=== PATIENT | male | born 1945 | race African-American/Black ===

== ENCOUNTER 2018-05-21 15:30 | Inpatient (IN) | payer MEDICARE, MEDICAID ==
[~2018-05-21] VITALS: Ht 185.4 cm; Wt 72.6 kg
[~2018-05-21 15:30] MED LIST: ASPI-1159 PO; ATEN-175 PO; ATOR40TA70 PO; BETA45CR15 TP; CHOL100046 PO; CLOP75TA16 PO; CLOT15CR2 TP; DULO30CA2 PO; GABA-533 PO; HYDR-519 PO; NORT25CA PO; ZOLP10TA2 PO
[2018-05-21] MEDS ORDERED: SODIUM CHLORIDE 0.9% 1,000 ML IV ONE (16:03)
[2018-05-21] MEDS ORDERED: ONDANSETRON HCL 4MG/2ML INJ IV STA (16:03)
[2018-05-21] MEDS ORDERED: FENTANYL CITRATE/PF 50MCG/ML 2ML VIAL IV ONE (16:15)
[2018-05-21 16:51] LABS: BASOPHILS % 0.7 % (0.0-2.0); EOSINOPHILS % 4.1 % (0.0-5.0); HEMATOCRIT. 43.4 % (42.0-52.0); HEMOGLOBIN. 14.6 g/dL (14.0-18.0); LYMPHOCYTES % 34.4 % (20.0-50.0); MEAN CORPUSCULAR HEMOGLOBIN 28.2 pg (28.0-32.0); MEAN CORPUSCULAR VOLUME 83.9 fL (80.0-94.0); MEAN PLATELET VOLUME 8.4 fl (7.4-10.4); NEUTROPHILS % 51.8 % (40.0-76.0); PLATELET 278 x1000/uL (130-400); RED BLOOD CELL COUNT 5.17 mill/uL (4.7-6.1); RED CELL DISTRIBUTION WIDTH 15.9 % (11.6-14.6)
[2018-05-21 16:55] LABS: CHLORIDE 113 mEq/L (98-107)
[2018-05-21 16:56] LABS: INR 1.1; PROTHROMBIN TIME 11.1 sec (9.1-11.1)
[2018-05-21 17:16] LABS: CLARITY URINE CLEAR (CLEAR); COLOR URINE YELLOW (YELLOW); KETONES URINE NEGATIVE (NEGATIVE); LEUKOCYTE ESTERASE URINE NEGATIVE (NEGATIVE); NITRITE URINE NEGATIVE (NEGATIVE); OCCULT BLOOD URINE NEGATIVE (NEGATIVE); PROTEIN URINE NEGATIVE (NEGATIVE); SPECIFIC GRAVITY URINE 1.012 (1.005-1.030)
[2018-05-21] MEDS ORDERED: DEXT 5%/0.45% NACL 1000ML 1,000 ML IV SCH (20:20)
[2018-05-21] MEDS ORDERED: CLONIDINE 0.1MG TABLET PO PRN (20:30)
[2018-05-21] MEDS ORDERED: ONDANSETRON HCL 4MG/2ML INJ IV PRN (20:30)
[2018-05-21] MEDS ORDERED: HYDROMORPHONE HCL/PF 2MG/ML CPJ IV PRN (20:30)
[2018-05-21] MEDS ORDERED: ACETAMINOPHEN 325MG TABLET PO PRN (20:30)
[2018-05-21] MEDS ORDERED: IOHEXOL-300 100 ML BOTTLE ONE (20:46)
[2018-05-22] VITALS: BP 127/80
[2018-05-22 00:38] VITALS: BP 127/80
[2018-05-22 04:00] VITALS: BP 107/85
[2018-05-22 12:00] VITALS: BP 130/77
[2018-05-22] MEDS ORDERED: HYDROCODONE/ACETAMINOPHEN 10/325MG TABLET PO PRN (12:00)
[2018-05-22 12:43] LABS: BASOPHILS % 0.9 % (0.0-2.0); EOSINOPHILS % 3.6 % (0.0-5.0); HEMATOCRIT. 40.6 % (42.0-52.0); HEMOGLOBIN. 13.5 g/dL (14.0-18.0); LYMPHOCYTES % 26.4 % (20.0-50.0); MEAN CORPUSCULAR HEMOGLOBIN 27.7 pg (28.0-32.0); MEAN CORPUSCULAR VOLUME 83.3 fL (80.0-94.0); MEAN PLATELET VOLUME 8.2 fl (7.4-10.4); MONOCYTES % 8.6 % (2.0-8.0); NEUTROPHILS % 60.5 % (40.0-76.0); PLATELET 241 x1000/uL (130-400); RED BLOOD CELL COUNT 4.87 mill/uL (4.7-6.1); RED CELL DISTRIBUTION WIDTH 16.4 % (11.6-14.6)
[2018-05-22 12:53] LABS: CHLORIDE 117 mEq/L (98-107)
[2018-05-22] MEDS ORDERED: ZOLPIDEM TARTRATE 5MG TABLET PO PRN (14:15)
[2018-05-22] MEDS: CLOPIDOGREL 75MG TABLET PO SCH (14:29)
[2018-05-22] MEDS: ATENOLOL 25MG TABLET PO SCH (14:29)
[2018-05-22] MEDS: ASPIRIN 81MG EC TABLET PO SCH (14:30)
[2018-05-22] MEDS ORDERED: ATORVASTATIN CALCIUM 40MG TABLET PO SCH (21:00)
[2018-05-22] MEDS: GABAPENTIN 400MG CAPSULE PO SCH (21:59)
[2018-05-23 04:00] VITALS: BP 107/58
[2018-05-23 06:00] LABS: BASOPHILS % 0.6 % (0.0-2.0); EOSINOPHILS % 2.5 % (0.0-5.0); HEMATOCRIT. 39.7 % (42.0-52.0); HEMOGLOBIN. 13.3 g/dL (14.0-18.0); LYMPHOCYTES % 19.1 % (20.0-50.0); MEAN CORPUSCULAR VOLUME 83.8 fL (80.0-94.0); MEAN PLATELET VOLUME 8.5 fl (7.4-10.4); MONOCYTES % 8.2 % (2.0-8.0); NEUTROPHILS % 69.6 % (40.0-76.0); PLATELET 234 x1000/uL (130-400); RED BLOOD CELL COUNT 4.73 mill/uL (4.7-6.1); RED CELL DISTRIBUTION WIDTH 16.2 % (11.6-14.6)
[2018-05-23 06:36] LABS: CHLORIDE 113 mEq/L (98-107)
[2018-05-23] MEDS: GABAPENTIN 400MG CAPSULE PO SCH (06:57)
[2018-05-23 08:00] VITALS: BP 112/63
[2018-05-23] MEDS ORDERED: DULOXETINE HCL 30MG DR CAPSULE PO SCH (09:00)
[2018-05-23] MEDS: CLOPIDOGREL 75MG TABLET PO SCH (09:37)
[2018-05-23] MEDS: ASPIRIN 81MG EC TABLET PO SCH (09:38)
[2018-05-23] MEDS: ATENOLOL 25MG TABLET PO SCH (09:38)
[2018-05-23 12:52] VITALS: BP 112/63
== END 2018-05-23 13:00 | disposition home or self-care (01) | DRG 392 ==
LOC: ER 15:30 → 7WST 19:53 → ENRESERV 23:11
PROVIDERS: ADMIT Hospitalist; ATTEND Hospitalist
DX: K29.70 Gastritis, unspecified, without bleeding (principal); I74.5 Embolism and thrombosis of iliac artery; I74.3 Embolism and thrombosis of arteries of the lower extremities; R07.89 Other chest pain; I72.4 Aneurysm of artery of lower extremity; I10 Essential (primary) hypertension; J44.9 Chronic obstructive pulmonary disease, unspecified; E78.00 Pure hypercholesterolemia, unspecified; I73.9 Peripheral vascular disease, unspecified; I25.10 Atherosclerotic heart disease of native coronary artery without angina pectoris; Z86.73 Personal history of transient ischemic attack (TIA), and cerebral infarction without residual deficits; Z86.79 Personal history of other diseases of the circulatory system; Z89.612 Acquired absence of left leg above knee; Z90.5 Acquired absence of kidney; Z79.82 Long term (current) use of aspirin; Z79.899 Other long term (current) drug therapy
CPT/HCPCS: 36415; 74177; 80048; 83735; 84484; 93005; 96360; 96361; 99285; J2405; J3010; J7030; Q9967

== ENCOUNTER 2018-09-03 09:34 | Day surgery (SDC) | payer MEDICARE, MEDICAID ==
[2018-09-03] VITALS (10 sets, daily range): BP systolic 120–144; BP diastolic 84–100
[~2018-09-03] VITALS: Ht 188 cm; Wt 68.0 kg
[2018-09-03] MEDS ORDERED: FENTANYL CITRATE/PF 50MCG/ML 2ML VIAL ONE (10:23)
[2018-09-03] MEDS ORDERED: SODIUM BICARBONATE 4% (2.4MEQ) 5ML VIAL IV ONE (10:26)
[2018-09-03] MEDS ORDERED: LIDOCAINE HCL 1% 20ML VIAL (Pyxis) INJ ONE (10:26)
[2018-09-03] MEDS ORDERED: FENTANYL CITRATE/PF 50MCG/ML 2ML VIAL IV ONE (12:30)
[2018-09-03 16:17] LABS: HEMATOCRIT 40.2 % (42.0-52.0); HEMOGLOBIN 13.6 g/dL (14.0-18.0)
== END 2018-09-03 16:30 | disposition home or self-care (01) ==
LOC: RAD 09:34
PROVIDERS: ATTEND Specialist
DX: N28.89 Other specified disorders of kidney and ureter (principal); I49.5 Sick sinus syndrome; E78.5 Hyperlipidemia, unspecified; I25.10 Atherosclerotic heart disease of native coronary artery without angina pectoris; I10 Essential (primary) hypertension; M81.0 Age-related osteoporosis without current pathological fracture; Z86.73 Personal history of transient ischemic attack (TIA), and cerebral infarction without residual deficits; I73.9 Peripheral vascular disease, unspecified; M19.90 Unspecified osteoarthritis, unspecified site
CPT/HCPCS: 36415; 49180; 76705; 77012; 85014; 85018; 88305; J3010; J3490; J7050

== ENCOUNTER 2018-09-30 09:28 | Day surgery (SDC) | payer MEDICARE, MEDICAID ==
[~2018-09-30] VITALS: Ht 188 cm; Wt 70.3 kg
[2018-09-30] VITALS (11 sets, daily range): BP systolic 114–130; BP diastolic 65–76
[2018-09-30] MEDS ORDERED: SODIUM BICARBONATE 4% (2.4MEQ) 5ML VIAL IV ONE (10:35)
[2018-09-30] MEDS ORDERED: FENTANYL CITRATE/PF 50MCG/ML 2ML VIAL ONE (10:35)
[2018-09-30] MEDS ORDERED: LIDOCAINE HCL 1% 20ML VIAL (Pyxis) INJ ONE (10:35)
[2018-09-30] MEDS ORDERED: HYDROCODONE/ACETAMINOPHEN 5/325MG TABLET PO PRN (11:45)
[2018-09-30 15:39] LABS: HEMATOCRIT 38.9 % (42.0-52.0)
== END 2018-09-30 16:10 | disposition home or self-care (01) ==
LOC: RAD 09:28
PROVIDERS: ATTEND Specialist
DX: N28.89 Other specified disorders of kidney and ureter (principal); I49.5 Sick sinus syndrome; I25.10 Atherosclerotic heart disease of native coronary artery without angina pectoris; E78.5 Hyperlipidemia, unspecified; M81.0 Age-related osteoporosis without current pathological fracture; Z85.528 Personal history of other malignant neoplasm of kidney; Z90.5 Acquired absence of kidney; I10 Essential (primary) hypertension; I73.9 Peripheral vascular disease, unspecified
CPT/HCPCS: 36415; 50200; 76942; 85014; 85018; 88305; 99152; 99153; J3010; J3490; J7050; G0500